=== PATIENT | female | born 1965 | race Caucasian/White ===

== ENCOUNTER 2022-03-13 08:00 | Outpatient (CLI) | payer BC ==
--- NOTE | 2022-03-13 16:03 | XRAY Report ---
PROCEDURE: Chest 2 View X-Ray INDICATIONS: COUGH TECHNIQUE: 2 view(s) of the chest. COMPARISON: None. FINDINGS: Surgical changes and devices: None. Lungs and pleura: Left cardiophrenic angle airspace opacity. No visible pleural effusion or findings of pneumothorax. Mediastinum: Mediastinal contours are normal. Heart size is normal. Bones and chest wall: No suspicious bony abnormalities. Soft tissues appear unremarkable. IMPRESSION: Left cardiophrenic angle airspace opacity likely infectious. Follow-up to resolution shaji mmended to document resolution. CT chest could be considered if there is high clinical suspicion for malignancy due to risk factors. Reviewed by: Francois Ashraf MD on 03/13/2022 4:02 PM PDT Approved by: Francois Ashraf MD on 03/13/2022 4:02 PM PDT Station ID: [id number]
== END 2022-03-13 23:59 | disposition home or self-care (01) ==
LOC: DI.N 08:00
PROVIDERS: ATTEND Family Medicine
DX: R05.9 Cough, unspecified (principal); J18.9 Pneumonia, unspecified organism; R91.8 Other nonspecific abnormal finding of lung field; Z20.822 Contact with and (suspected) exposure to COVID-19